=== PATIENT | female | born 1995 | race Native Hawaiian/Other Pacific Islander ===

== ENCOUNTER 2018-11-14 23:43 | Emergency (ER) | payer BC ==
[~2018-11-14] VITALS: Ht 157.5 cm; Wt 82.5 kg
[2018-11-14 23:58] VITALS: BP 135/96
[2018-11-15] MEDS ORDERED: METH4TAB3 PO (05:41)
[2018-11-15] MEDS ORDERED: METH500T PO (05:41)
[2018-11-15 06:01] LABS: CLARITY,URINE CLEAR (Clear); COLOR,URINE YELLOW (Yellow); GLUCOSE, URINE NEGATIVE (Neg); KETONES,URINE NEGATIVE (Neg); LEUKOCYTE ESTERASE ,URINE TRACE (Neg); NITRITES, URINE NEGATIVE (Neg); OCCULT BLOOD,URINE NEGATIVE (Neg); PH,URINE 5.5 (4.8-8.0); PROTEIN,URINE NEGATIVE (Neg); URINE HCG NEGATIVE (NEG); UROBILINOGEN,URINE 0.2 E.U/dL (0.2-1.0)
[2018-11-15 06:02] LABS: UA COLLECTION TYPE CLN CATCH MIDSTREAM
[2018-11-15 06:06] LABS: BACTERIA,URINE FEW /HPF (Neg); RBC,URINE 0-2 /HPF (0-2); SQUAMOUS EPITHELIAL CELL,UR FEW /LPF (FEW)
== END 2018-11-15 06:24 | disposition home or self-care (01) ==
LOC: ER 23:44
DX: S39.012A Strain of muscle, fascia and tendon of lower back, initial encounter (principal); M54.41 Lumbago with sciatica, right side; G89.29 Other chronic pain; Z88.1 Allergy status to other antibiotic agents; Z88.8 Allergy status to other drugs, medicaments and biological substances; X50.1XXA Overexertion from prolonged static or awkward postures, initial encounter; Y93.89 Activity, other specified; Y92.89 Other specified places as the place of occurrence of the external cause; Y99.9 Unspecified external cause status
CPT/HCPCS: 81001; 81025; 87088; 99283

== ENCOUNTER 2023-05-22 19:32 | Emergency (ER) | payer BC, MEDICAID ==
[~2023-05-22] VITALS: Ht 160 cm; Wt 81.8 kg
[~2023-05-22 19:32] MED LIST: METH4TAB3 PO; METH500T PO
[2023-05-23] MEDS: ibuprofen tablet 400 MG TABLET PO ONE (01:01)
[2023-05-23] MEDS: acetaminophen 325mg tablet PO ONE (01:01)
[2023-05-23 01:42] VITALS: BP 147/95; PULSE 84; RESP 18; TEMP 97.9; O2SAT 95
== END 2023-05-23 01:45 | disposition home or self-care (01) ==
LOC: ER 19:32
DX: M79.602 Pain in left arm (principal); M25.571 Pain in right ankle and joints of right foot; M25.572 Pain in left ankle and joints of left foot; G89.29 Other chronic pain; M54.9 Dorsalgia, unspecified; W19.XXXA Unspecified fall, initial encounter; Y93.89 Activity, other specified; Y92.89 Other specified places as the place of occurrence of the external cause; Y99.8 Other external cause status
CPT/HCPCS: 73060; 73090; 73110; 73600; 99284; A4565